=== PATIENT | female | born 1950 | race Two or more races ===

== ENCOUNTER 2017-01-17 06:42 | Day surgery (SDC) | payer MEDICARE, OTHER ==
[~2017-01-17] VITALS: Ht 152.4 cm; Wt 75.7 kg
[2017-01-17 07:12] VITALS: BP 123/78
[2017-01-17 10:47] VITALS: BP 117/64
== END 2017-01-17 10:30 | disposition home or self-care (01) ==
LOC: DS 06:42 → OR 09:30 → GI 09:30 → DS 10:30
PROVIDERS: Internal Medicine Gastroenterology
PROC: 0DBL8ZX Excision of Transverse Colon, Via Natural or Artificial Opening Endoscopic, Diagnostic (ICD-10-PCS; principal; 2017-01-17 09:30)
DX: Z12.11 Encounter for screening for malignant neoplasm of colon (principal); Z68.32 Body mass index [BMI] 32.0-32.9, adult
CPT/HCPCS: 45378; 88344; J1200; J1610; J2250; J2310; J3010; J3490